=== PATIENT | female | born 1980 | race Caucasian/White ===

== ENCOUNTER 2022-03-05 11:00 | Outpatient (RCR) | payer MEDICAID, SELFPAY | END 2022-07-02 14:56 | disposition home or self-care (01) | PROVIDERS: PCP Family Medicine; Visit Provider Neurological Surgery | DX: M54.42 Lumbago with sciatica, left side (principal); R53.1 Weakness; R26.89 Other abnormalities of gait and mobility; M54.2 Cervicalgia; Z51.89 Encounter for other specified aftercare | CPT/HCPCS: 97110; 97140; 97161 ==

== ENCOUNTER 2022-03-11 09:56 | Outpatient (CLI) | payer MEDICAID, SELFPAY ==
--- NOTE | 2022-03-11 10:15 | CRLHL7_ITS ---
For Patients: As a result of the Century Cures Act, medical imaging exams and procedure reports are released immediately into your electronic medical record. You may view this report before your referring provider. If you have questions, please contact your health care provider. INDICATION : Neck pain. Left-sided radiculopathy. TECHNIQUE : Cervical spine MRI without contrast. The following sequences were obtained: Sagittal T1, T2 weighted and STIR sequences. Axial T2-weighted and gradient sequences. COMPARISON: COMPARISONCervical spine MRI from 05/28/2020. FINDINGS: Normal cervical lordotic curve. No recent compression fracture or marrow replacing process. Posterior fossa structures are normal. Cervical cord signal is normal. No extraspinal soft tissue abnormalities. Discs/Endplates: At C5-6 and C6-7, mild disc height loss and disc desiccation. The remaining discs exhibit normal height and hydration signal. Findings at individual levels as follows: Craniocervical junction: Alignment is maintained. C2-C3: No spinal canal or neural foraminal stenosis. C3-C4: No spinal canal or neural foraminal stenosis. C4-C5: Shallow disc osteophyte complex minimally flattens the ventral thecal sac. No spinal canal or neural foraminal stenosis. C5-C6: Disc bulge contacts the ventral cord and contributes to mild spinal canal stenosis. Left uncovertebral arthrosis with moderate left neural foraminal stenosis. Mild impingement of the exiting left C6 nerve root. No right neural foraminal stenosis. C6-C7: Disc bulge contacts the ventral cord and contributes to [id number] spinal canal stenosis. Left uncovertebral arthrosis contributes to moderate neural foraminal stenosis with mild impingement of the exiting left C7 nerve root. Right uncovertebral arthrosis contributes to mild right neural foraminal stenosis. C7-T1: No spinal canal or neural foraminal stenosis. Imaged upper thoracic levels: No spinal canal or neural foraminal stenosis. IMPRESSION: 1. At C5-6, moderate left neural foraminal stenosis with mild impingement of the exiting left C6 nerve root. Slightly progressed. 2. At C6-7, moderate left neural foraminal stenosis with mild impingement of the exiting left C7 nerve root. Mild to moderate spinal canal stenosis as well. Stable. 3. Cervical cord signal is normal. No intradural pathology. Dictated by Gonzalo Ribeiro MD @ 03/11/2022 2:37:31 PM (Electronically Signed)
== END 2022-03-11 09:57 | disposition home or self-care (01) ==
LOC: MRI 09:57
PROVIDERS: PCP Family Medicine; Visit Provider Physician Assistant Medical
DX: M54.2 Cervicalgia (principal); M54.12 Radiculopathy, cervical region; M48.02 Spinal stenosis, cervical region
CPT/HCPCS: 72141

== ENCOUNTER 2022-05-15 13:46 | Outpatient (CLI) | payer MEDICAID, SELFPAY | END 2022-05-15 13:47 | disposition home or self-care (01) | PROVIDERS: PCP Family Medicine; Visit Provider Family Medicine | DX: N39.0 Urinary tract infection, site not specified (principal); M54.9 Dorsalgia, unspecified | CPT/HCPCS: 87086 ==

== ENCOUNTER 2022-11-05 17:15 | Outpatient (REF) | payer MEDICAID, SELFPAY ==
[2022-11-05 18:16] LABS: Basophils Absolute Auto 0.05 K/uL (0.00-0.30); Basophils Percent Auto 0.7 % (0.0-3.0); Eosinophils Absolute Auto 0.18 K/uL (0.00-0.50); Eosinophils Percent Auto 2.7 % (0.0-7.0); Hematocrit 40.6 % (33.0-51.0); Hemoglobin* 12.9 gm/dL (12.0-16.0); Immature Granulocytes Abs Auto 0.01 K/uL (0.00-0.30); Immature Granulocytes Pct Auto 0.1 %; Lymphocytes Absolute Auto 2.96 K/uL (0.90-2.90); Lymphocytes Percent Auto 43.6 % (20-44); Mean Corpuscular HGB Conc 32 gm/dL (32-36); Mean Corpuscular Hemoglobin 29 pg (26-34); Mean Corpuscular Volume 92 fL (80-100); Monocytes Percent Auto 5.2 % (0.0-11.0); Neutrophils Absolute Auto 3.24 K/uL (1.7-7.0); Neutrophils Percent Auto 47.7 % (42.0-72.0); Platelet Count* 306 K/uL (140-440); Red Blood Count 4.43 m/uL (4.00-5.20); White Blood Count* 6.79 K/uL (4.50-11.00)
[2022-11-05 18:17] LABS: Chloride* 104 mmol/L (96-114); Sodium* 138 mmol/L (135-149)
[2022-11-05 18:18] LABS: Potassium* 4.4 mmol/L (3.6-5.1); Slide Review Reflex No
[2022-11-05 18:20] LABS: Creatinine* 0.6 mg/dL (0.5-1.5); Estimated Glomerular Filt Rate 115 ml/min
[2022-11-05 18:21] LABS: Blood Urea Nitrogen* 19 mg/dL (5-24); Calcium* 9.4 mg/dL (8.4-10.6); Carbon Dioxide* 27 mmol/L (20-32); Glucose* 88 mg/dL (60-115)
[2022-11-05 18:23] LABS: INR 0.84 (0.91-1.10); Partial Thromboplastin Time* 27 Seconds (23-33)
[2022-11-05 18:48] LABS: Hemoglobin A1C* 5.32 % (0-5.6)
== END 2022-11-05 17:16 | disposition home or self-care (01) ==
LOC: NPINS 17:15
PROVIDERS: PCP Family Medicine
DX: Z01.818 Encounter for other preprocedural examination (principal)
CPT/HCPCS: 80048; 80053; 83036; 84443; 85025; 85610; 85730; 87081

== ENCOUNTER 2023-08-06 10:08 | Outpatient (CLI) | payer OTHER, SELFPAY | END 2023-08-06 10:09 | disposition home or self-care (01) | PROVIDERS: PCP Family Medicine; Visit Provider Family Medicine | DX: E05.90 Thyrotoxicosis, unspecified without thyrotoxic crisis or storm (principal); I10 Essential (primary) hypertension; Z13.220 Encounter for screening for lipoid disorders | CPT/HCPCS: 80053; 80061; 84439; 84443 ==

== ENCOUNTER 2023-12-15 09:00 | Outpatient (RCR) | payer MEDICAID, OTHER, MEDICARE, SELFPAY | END 2024-02-15 10:27 | disposition home or self-care (01) | PROVIDERS: PCP Family Medicine; Visit Provider Physician Assistant | DX: M54.2 Cervicalgia (principal); M53.3 Sacrococcygeal disorders, not elsewhere classified; Z98.1 Arthrodesis status; M48.07 Spinal stenosis, lumbosacral region; M51.26 Other intervertebral disc displacement, lumbar region; M51.27 Other intervertebral disc displacement, lumbosacral region; Z51.89 Encounter for other specified aftercare | CPT/HCPCS: 97012; 97016; 97032; 97035; 97110; 97112; 97140; 97161; 97164 ==

== ENCOUNTER 2024-03-16 12:59 | Outpatient (CLI) | payer OTHER, MEDICARE, SELFPAY | END 2024-03-16 13:00 | disposition home or self-care (01) | LOC: NFLDREF 03-19 06:13 | PROVIDERS: PCP Family Medicine; Referring Provider Family Medicine; Visit Provider Family Medicine | DX: R39.9 Unspecified symptoms and signs involving the genitourinary system (principal); N39.0 Urinary tract infection, site not specified | CPT/HCPCS: 87086 ==

== ENCOUNTER 2024-06-30 11:13 | Outpatient (CLI) | payer OTHER, MEDICARE, SELFPAY | END 2024-06-30 11:14 | disposition home or self-care (01) | PROVIDERS: PCP Family Medicine; Visit Provider Family Medicine | DX: I10 Essential (primary) hypertension (principal); R79.89 Other specified abnormal findings of blood chemistry; E04.1 Nontoxic single thyroid nodule | CPT/HCPCS: 80048; 84443 ==

== ENCOUNTER 2024-07-03 10:15 | Outpatient (RCR) | payer OTHER, MEDICARE, SELFPAY | END 2024-09-04 14:43 | disposition home or self-care (01) | PROVIDERS: PCP Family Medicine; Visit Provider Neurological Surgery | DX: M46.1 Sacroiliitis, not elsewhere classified (principal); M48.02 Spinal stenosis, cervical region; M50.10 Cervical disc disorder with radiculopathy, unspecified cervical region; Z51.89 Encounter for other specified aftercare | CPT/HCPCS: 97110; 97140; 97163 ==

== ENCOUNTER 2024-07-05 07:17 | Day surgery (SDC) | payer OTHER, MEDICARE, SELFPAY ==
[2024-07-05] VITALS (9 sets, daily range): BP systolic 118–128; BP diastolic 77–91; PULSE 65–99; RESP 16; TEMP 36.1–36.8; O2SAT 92–100; BMI 31.1
[2024-07-05] MEDS: fentaNYL 100 MCG/2 ML inj IVP (07:11)
[2024-07-05] MEDS: MIDAZOLAM HCL 1 MG/ML inj IVP (07:11)
[2024-07-05] MEDS: LACTATED RINGERS 1000 ML 1,000 ML 100 ML IV (07:15)
--- NOTE | 2024-07-05 07:36 | W.PM.H&PU ---
History & Physical Update History & Physical Update H&P Reviewed and patient assessed: No changes noted
[2024-07-05] MEDS: SODIUM CHLORIDE 0.9 % (FLUSH) 10 ML SYRINGE IVF (07:58)
--- NOTE | 2024-07-05 08:45 | SUR.PREOP ---
TIME?OUT:?0833 PT/RN/MDA?VERIFICATION?OF?SURGICAL?SITE,?PROCEDURE,?AND?CONSENT OBTAINED?PRIOR?TO?INVASIVE?PROCEDURE.
--- NOTE | 2024-07-05 09:02 | P.ANES_ITS ---
Anesthesia Charges Start Date/Time Anesthesia Start Date: 07/05/24 Anesthesia Start Time: 09:05 Stop Date/Time Anesthesia Stop Date: 07/05/24 Anesthesia Stop Time: 10:29 Coding CPT Codes CPT Codes: ANESTH ELBOW AREA SURGERY - 14410 ([id number]) QK - DIALYSIS NURSE 2-4 CNCRNT ANES PROC, QX - SEISMOGRAPH OPERATOR SVC W/ MD MED DIRECTION, P3 - PATIENT W/SEVERE SYS DISEASE
--- NOTE | 2024-07-05 09:02 | W.ANESCHARGE ---
Anesthesia Charges Start Date/Time Anesthesia Start Date: 07/05/24 Anesthesia Start Time: 09:05 Stop Date/Time Anesthesia Stop Date: 07/05/24 Anesthesia Stop Time: 10:29 Coding CPT Codes CPT Codes: ANESTH ELBOW AREA SURGERY - 85925 ([id number]) QK - ELECTRIC CRANE OPERATOR 2-4 CNCRNT ANES PROC, QX - PRINTING AGENT SVC W/ MD MED DIRECTION, P3 - PATIENT W/SEVERE SYS DISEASE
[2024-07-05] MEDS: CEFAZOLIN 2 GM in 0.9 % SODIUM CHLORIDE Mini-bag 100 ML IVPB (09:16)
[2024-07-05] MEDS: BACITRACIN OINTMENT BULK TUBE 1 APPLIC TOPICAL (09:50)
--- NOTE | 2024-07-05 10:02 | P.ORPRC_ITS ---
Procedure Note Date of procedure: 07/05/24 Procedure: PREOPERATIVE DIAGNOSIS: 1. Right ulnar nerve neuropathy; cubital tunnel syndrome 2. Right carpal tunnel syndrome 3. Right long trigger finger-flexor tenosynovitis POSTOPERATIVE DIAGNOSIS: 1. Right ulnar nerve neuropathy; cubital tunnel syndrome with a stable nerve during flexion after release. 2. Right carpal tunnel syndrome 3. Right long trigger finger-flexor tenosynovitis PROCEDURE: 1. Right ulnar nerve decompression 2. Right open carpal tunnel release 3. Right long trigger finger release SURGEON: Jesus Santos MD BATT MACHINE OPERATOR: Yamile Contreras PA-C (Of note, use of an administrative assistant office manager was critical for this case to aid in patient positioning, tissue retraction, nerve protection, arm positioning, suture management, and closure as well as splint application.) ANESTHESIA: Regional block plus MAC EBL: 5 mL TOURNIQUET: 30 minutes at 250 torr IMPLANTS: None COMPLICATIONS: None evident INDICATIONS FOR PROCEDURE: The patient is a pleasant 44-year-old female. They have experienced right upper extremity numbness and tingling involving all digits, both median and ulnar nerve distribution, with some difficulty with fine motor skills. Given the patient's difficulty with use of this extremity as well as failure of nonoperative management, recommendation was made for surgery for nerve decompression. DESCRIPTION OF PROCEDURE: Following a thorough discussion of the risks, benefits and alternatives, consent was obtained and the right medial elbow and hand/palm were marked. The patient was brought to the operating room, placed supine on the operating table. Induction of anesthesia was undertaken. Appropriate time out was performed identifying proper patient, site, and procedure. 2 g IV Ancef was administered within 1 hr incision preoperatively. The operative upper extremity was prepped and draped in the appropriate sterile fashion using ChloraPrep prep. The limb was exsanguinated and the tourniquet inflated. We began with the right long trigger finger release. Sharp incision through skin in line with 1 of the palmar creases overlying the volar MCP joint. Blunt dissection with the tenotomy scissors allowed us to protect neurologic st ructures in the vicinity. The A1 sherri was identified and released from its proximal to distal extent. The tendons were then retrieved out of the wound with a Ragnell retractor. Complete release was confirmed. We then turned our attention to the open carpal tunnel release as follows: an incision was made in line with the radial border of the ring finger beginning 1 cm distal to the distal wrist crease and progressing for another 2.5cm distal. Caution was taken to stay proximal to Bunn's cardinal line. Sharp incision through the skin, subcutaneous tissue, and palmar fascia was performed. The thenar musculature was bluntly elevated off the transverse carpal ligament. The ligament was directly visualized, and divided sharply with a 15 blade. This was released from its most proximal to the most distal extent. Metzenbaum scissor was also utilized to release the fascia extension proximally. We confirmed complete release of the transverse carpal ligament. Finally, we completed the ulnar nerve decompression at the cubital tunnel as follows: a longitudinal incision was made along the medial elbow extending proximal and distal approximately 3-5 cm in either direction. Sharp incision through the skin and blunt dissection through the subcutaneous tissue allowed protection of crossing neurologic structures. Proximally, blunt dissection continued to the depth of the ulnar nerve itself. The nerve was released from its surrounding tissues beginning proximally and moving toward the distal extent. This included ligament of [place], medial intermuscular septum, cubital tunnel, FCU fascial sling, etc. The vena comitantes was maintained with the nerve and caution was taken particularly around the motor branches of the ulnar nerve. After releasing the nerve circumferentially, we then evaluated the need for transposition based on any subluxation / dislocation during elbow flexion. It was found to be stable and maintained its position within the groove with only minimal subluxation at deep flexion. It did not have significant subluxation nor dislocation. The nerve was found to be stable with deep elbow flexion and did not require anterior transposition. The tourniquet was deflated, hemostasis achieved, and a thorough irrigation performed. Closure was performed with 2-O Vicryl and 3-0 Monocryl for the subcutaneous and subcuticular closure, respectively. The carpal tunnel was then closed with 4-0 nylon in interrupted mattress fashion. Dressings were applied. Posterior long-arm splint was applied. PLAN: 1. Encourage elevation of the operative extremity. 2. Range of motion of the fingers and hand/wrist as tolerated. 3. Ibuprofen/acetaminophen and/or oxycodone as needed for pain control. 4. Follow up with PA visit or nurse visit in 2 days for splint removal and then at the 12-16 day point for wound check and suture removal.
--- NOTE | 2024-07-05 10:33 | P.ANES_ITS ---
Anesthesia Charges Start Date/Time Anesthesia Start Date: 07/05/24 Anesthesia Start Time: 09:05 Stop Date/Time Anesthesia Stop Date: 07/05/24 Anesthesia Stop Time: 10:29 Coding CPT Codes CPT Codes: ANESTH ELBOW AREA SURGERY - 34173 ([id number]) P3 - PATIENT W/SEVERE SYS DISEASE, QK - CLINICAL QUALITY MANAGER 2-4 CNCRNT ANES PROC, QX - PROJECT MANAGEMENT INSTRUCTOR SVC W/ MD MED DIRECTION
--- NOTE | 2024-07-05 10:33 | W.ANESCHARGE ---
Anesthesia Charges Start Date/Time Anesthesia Start Date: 07/05/24 Anesthesia Start Time: 09:05 Stop Date/Time Anesthesia Stop Date: 07/05/24 Anesthesia Stop Time: 10:29 Coding CPT Codes CPT Codes: ANESTH ELBOW AREA SURGERY - 26131 ([id number]) P3 - PATIENT W/SEVERE SYS DISEASE, QK - FLAT GRINDER OPERATOR 2-4 CNCRNT ANES PROC, QX - INSTRUMENT LENS INSPECTOR SVC W/ MD MED DIRECTION
--- NOTE | 2024-07-05 11:28 | W.PM.NB ---
Nerve Block Nerve Block Time Seen by Provider: 08:34 Date Seen: 07/05/24 Type of block requested by surgeon for post-operative analgesia: axillary Side: right Time out performed: Yes Verification of patient name: Yes Verification of date of : Yes Site marking: site marked Name of person performing procedure: Satnam Continuous monitoring Was continuous monitoring of O2 sat, B/P, playground monitor, recorded every 15 minutes?: Yes Procedure Checklist: sterile prep, needles and gloves Ultrasound guided. Images saved: Yes Medications given in 5ml increments after negative aspiration: Ropivicaine %: 0.5 mL: 10 Needle gauge: 22 and Lidocaine %: 2 mL: 15 Needle gauge: 22 Patient tolerated procedure well: Yes Additional comments: Needle noted adjacent to nerve Block Charges Block Charge (with Pro Fee): Brachial Plexus Use of Ultrasound Machine for Block: Yes- US Guidance/pain block
== END 2024-07-05 12:52 | disposition home or self-care (01) ==
PROVIDERS: PCP Family Medicine; Visit Provider Orthopaedic Surgery Sports Medicine
PROC: (CPT 64718; principal; 2024-07-05 09:00)
PROC: (CPT 64721; 2024-07-05 09:00)
DX: G56.21 Lesion of ulnar nerve, right upper limb (principal); G56.01 Carpal tunnel syndrome, right upper limb; M65.331 Trigger finger, right middle finger; M65.841 Other synovitis and tenosynovitis, right hand; G89.18 Other acute postprocedural pain
CPT/HCPCS: 64718; 64721; 26055; 01710; 64415; 76942; 81025; J0690; J1100; J2250; J2405; J2704; J2795; J3010; J3490; J7120

== ENCOUNTER 2024-07-06 13:18 | Outpatient (CLI) | payer OTHER, MEDICARE, SELFPAY ==
--- NOTE | 2024-07-06 13:00 | CRLHL7_ITS ---
For Patients: As a result of the Century Cures Act, medical imaging exams and procedure reports are released immediately into your electronic medical record. You may view this report before your referring provider. If you have questions, please contact your health care provider. INDICATION: H/O Thyroid Nodules COMPARISON: none TECHNIQUE: Russ scale and color Doppler images were acquired of the thyroid gland. FINDINGS: Solid nodule inferior pole left thyroid lobe measures 8 x 8 x 9 millimeters, TR 4. Additional solid nodule upper pole left thyroid lobe measures 5 x 5 x 8 millimeters, TR 4. Isthmus measures 3.2 millimeters. The right lobe measures 4.1 x 1.2 x 1.6 cm and the left lobe measures 4.7 x 1.4 x 1.8 cm in size. The color Doppler images demonstrate normal vascularity. There is no evidence of cervical lymphadenopathy or parathyroid mass. IMPRESSION: Sub cm left-sided thyroid nodules. No further follow-up indicated. Dictated by Harley Garsia MD @ 07/07/2024 1:02:06 PM (Electronically Signed)
== END 2024-07-06 13:19 | disposition home or self-care (01) ==
LOC: US 13:19
PROVIDERS: PCP Family Medicine; Visit Provider Family Medicine
DX: E04.1 Nontoxic single thyroid nodule (principal)
CPT/HCPCS: 76536

== ENCOUNTER 2024-08-11 10:19 | Outpatient (CLI) | payer MEDICARE, OTHER, SELFPAY | END 2024-08-11 10:20 | disposition home or self-care (01) | PROVIDERS: PCP Family Medicine; Visit Provider Family Medicine | DX: I10 Essential (primary) hypertension (principal); Z01.818 Encounter for other preprocedural examination | CPT/HCPCS: 85610; 85730; 86850; 86900; 86901; 87081 ==

== ENCOUNTER 2024-12-05 12:09 | Outpatient (CLI) | payer OTHER, MEDICARE, SELFPAY | END 2024-12-05 12:10 | disposition home or self-care (01) | LOC: NFLDREF 12-09 17:23 | PROVIDERS: PCP Family Medicine; Referring Provider Family Medicine; Visit Provider Family Medicine | DX: R35.0 Frequency of micturition (principal) | CPT/HCPCS: 87086 ==

== ENCOUNTER 2025-01-02 10:58 | Outpatient (CLI) | payer MEDICARE, OTHER, SELFPAY ==
[2025-01-02 11:53] VITALS: BP 182/96; PULSE 94; RESP 18
--- NOTE | 2025-01-02 14:09 | W.PM.STED ---
Stress Test Note Date Date Seen: 01/02/25 Date of test: 01/02/25 Providers Primary care provider: Dmitriy Manning Stress test physician: Leon Baig Stress Test Note Stress test ordered: Exercise Stress Test Indication for test: Chest pain Results discussion: Patient is a very nice lady who presents for the above test, after discussion the risks benefits and side effects including non diagnosis she would like to proceed, cardiac stress test medical history form is reviewed in detail. Pretest EKG shows a heart rate of 99, blood pressure 140/100. Standard Edwin protocol is employed over a time course of 10 minutes 12 seconds, she achieved a metabolic equivalent of 11.9 Mets with a maximum heart rate of 162, which is 108% of the maximum, maximum blood pressure was 212/98. There are no acute dysrhythmias, no acute ST wave changes suggestive of ischemia. She had some mild borderline ST depression of 1 to 1.5 mm both laterally and inferiorly. Conditioning was felt to be good. Subjectively she did develop a little bit of shortness of breath and some centralized chest discomfort. Impression: Negative electrographic portion of stress echo. Subjectively positive Follow up suggested: Patient was borderline, with some mild ST wave changes, these resolved in recovery. Her conditioning was felt to be good. If further workup is needed because of her symptomatic symptoms I would suggest an imaging modality coupled either with this stress test such as a stress echo, or a Lexiscan. Clinical correlation with the above will be needed. Patient left this testing facility in good condition
== END 2025-01-02 11:54 | disposition home or self-care (01) ==
LOC: STRESS 11:00
PROVIDERS: PCP Family Medicine; Visit Provider Family Medicine
DX: R07.9 Chest pain, unspecified (principal)
CPT/HCPCS: 93016; 93017

== ENCOUNTER 2025-01-03 12:57 | Outpatient (CLI) | payer MEDICARE, OTHER, SELFPAY ==
--- NOTE | 2025-01-03 13:00 | CRLHL7_ITS ---
For Patients: As a result of the Century Cures Act, medical imaging exams and procedure reports are released immediately into your electronic medical record. You may view this report before your referring provider. If you have questions, please contact your health care provider. INDICATION: BILATERAL SCREENING MAMMOGRAM, ASYMPTOMATIC 44 Y/O FEMALE COMPARISON: 06/02/2022, 08/23/2020, 11/02/2019 TECHNIQUE: Digital mammogram in CC and MLO projections including computer-aided detection (CAD) and tomosynthesis. BREAST COMPOSITION: The breasts are almost entirely fatty. FINDINGS: No suspicious findings. ASSESSMENT: BI-RADS 1 Negative RECOMMENDATION: Annual screening mammogram. A lay language report of this examination will be provided to the patient. Dictated by: Harley Garsia MD @ 01/08/2025 11:08:08 (Electronically Signed)
== END 2025-01-03 12:58 | disposition home or self-care (01) ==
LOC: MAMMO 12:58
PROVIDERS: PCP Family Medicine; Visit Provider Family Medicine
DX: Z12.31 Encounter for screening mammogram for malignant neoplasm of breast (principal)
CPT/HCPCS: 77063; 77067

== ENCOUNTER 2025-02-08 09:45 | Outpatient (RCR) | payer OTHER, MEDICARE, SELFPAY ==
--- NOTE | 2024-07-12 16:27 | OT.OPOE ---
OT Outpatient Ortho Eval OT Outpatient Ortho Eval* Start: 07/12/24 08:44 Freq: Status: Active Protocol: Document 07/12/24 08:45 RANJITH (Rec: 07/12/24 16:25 RIKKIKarina [id number]) E-signed By Deena Cole, OTR/L, CLT OT OP Ortho Eval Details Complexity Complexity Medium Insurance Information Other Insurance [facility] [employer], [facility] Medicare Insurance Information Comments Apt w/Kai Byrnes PA-C in 10- 12 days for clinical reassessment and suture removal. 07/18/24 at 10am in [place] Then, back to the surgeon in 6 weeks for clinical reassessment. Outpatient History/Precautions Current Condition/Medical Diagnosis Referring Provider Dr. Jesus Santos Medical Diagnoses Z98.890 Other Specified postprocedural states POSTOPERATIVE DIAGNOSIS: 1. Right ulnar nerve neuropathy; cubital tunnel syndrome with a stable nerve during flexion after release. 2. Right carpal tunnel syndrome 3. Right long trigger finger- flexor tenosynovitis Treatment Diagnosis Pain in R hand, M79.641 Pain in R elbow, M25.521 R hand Stiffness, long finger (dominant hand) M25.641 Date of Onset DOS: 07/05/24 Other Precautions Surgeon wrote orders for: Gentle motion of the elbow, wrist, hand and fingers Other Conditions History of carpal tunnel surgery of right wrist (Acute 07/05/24) Right open carpal tunnel release. Dr. Santos, 07/05/24 Z98.890 - Other specified postprocedural states (ICD-10) Status post trigger finger release (Acute 07/05/24) Right long trigger finger release. Dr. Santos, 07/05/24 Z98.890 - Other specified postprocedural states (ICD-10) History of decompression of ulnar nerve (Acute 07/05/24) Right ulnar nerve decompression. Dr. Santos, Z98.890 - Other specified postprocedural states (ICD-10) Abnormal TSH (Acute) R79.89 - Other specified abnormal findings of blood chemistry (ICD-10) Pain management contract agreement (Acute) Z02.89 - Encounter for other administrative examinations ( ICD-10) Preventative health care ( Acute) Z00.00 - Encounter for general adult medical examination without abnormal findings (ICD -10) Insomnia (Chronic) G47.00 - Insomnia, unspecified (ICD-10) Chronic back pain (Chronic) Has had L4-5 fusion. M54.9 - Dorsalgia, unspecified (ICD-10) G89.29 - Other chronic pain ( ICD-10) Atrophic vaginitis (Chronic) N95.2 - Postmenopausal atrophic vaginitis (ICD-10) Obesity (BMI 30.0-34.9) ( Chronic) E66.9 - Obesity, unspecified ( ICD-10) Depression (Chronic) F32.A - Depression, unspecified (ICD-10) Undifferentiated connective tissue disease (Chronic) M35.9 - Systemic involvement of connective tissue, unspecified (ICD-10) Thyroid nodule (Chronic) E04.1 - Nontoxic single thyroid nodule (ICD-10) Restless legs syndrome ( Chronic) G25.81 - Restless legs syndrome (ICD-10) Raynaud's disease (Chronic) I73.00 - Raynaud's syndrome without gangrene (ICD-10) Posttraumatic stress disorder (Chronic) F43.10 - Post-traumatic stress disorder, unspecified (ICD-10 ) Pelvic pain in female (Chronic ) Chronic parametritis. R10.2 - Pelvic and perineal pain (ICD-10) Keloid scar (Chronic) L91.0 - Hypertrophic scar (ICD -10) Hyperthyroidism (Chronic) E05.90 - Thyrotoxicosis, unspecified without thyrotoxic crisis or storm (ICD-10) Hypertension (Chronic) with hx proteinuria. I10 - Essential (primary) hypertension (ICD-10) Gastroesophageal reflux disease (Chronic) K21.9 - Gastro-esophageal reflux disease without esophagitis (ICD-10) Fibromyalgia (Chronic) M79.7 - Fibromyalgia (ICD-10) Extrapyramidal movement disorder (Chronic) G25.9 - Extrapyramidal and movement disorder, unspecified (ICD-10) Endometriosis (Chronic) N80.9 - Endometriosis, unspecified (ICD-10) Chronic pain (Chronic) Hx of going to pain clinic. G89.29 - Other chronic pain ( ICD-10) Attention deficit hyperactivity disorder (ADHD) (Chronic) F90.9 - Attention-deficit hyperactivity disorder, unspecified type (ICD-10) Anxiety (Chronic) and panic attacks. F41.9 - Anxiety disorder, unspecified (ICD-10) Medical/Functional History Medical History Reviewed Yes Prior Level of Function/Mobility Patient is a and mother to 3 high school age kids. She is Indep with self cares and IADLs Ortho Subjective Subjective Subjective 44 year old female patient had her post op apt with Dr. Santos on 07/07/24 following her right ulnar nerve decompression, open carpal tunnel release, and long trigger finger release (DOS 03/2025). Surgeon wrote orders for: Gentle motion of the elbow, wrist, hand and fingers . Patient is concerned with infection risk and requests the wounds be dressed due to having two dogs. She will see Kai Byrnes PA-C in 10-12 days for clinical reassessment and suture removal. Then, back to the surgeon in 6 weeks for clinical reassessment. 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 This is all in addition to her right upper extremity symptoms. Pain Assessment Pain Pain Yes Pain Comments R (dominant) hand 5/10 but can be worse at night (in the evening) R (dominant) elbow 4/10 but can be worse at night (in the evening) Range of Motion and Strength Elbow/Forearm Range of Motion and Strength Elbow/Forearm Range of Motion and R elbow, AROM 8-136 degrees Strength Wrist Range of Motion and Strength Wrist Range of Motion and Strength R wrist: Flexion: 50 degrees Extension: 55 degrees Radial deviation: 17 degrees Ulnar deviation: 35 degree Hand/Finger/Thumb Range of Motion and Strength Hand/Finger/Thumb Range of Motion and R hand, middle finger Strength MCP: 4-75 degrees PIP: 5-80 degrees DIP: 4-60 degrees OT Problems Problems Problems Decreased Strength,Decreased Range of Motion,Decreased Dexterity,Pain,Decreased Coordination,Sensory Sensitivity,Lifting,Gripping, Pinching Problems Comments Sometimes is waking up in the middle of the night with pain/ discomfort in the R hand, trying to elevate every night on a pillow Other Problems Writing,Opening Containers, Dressing,Computer,Fasteners, Sleeping Patient Potential Excellent Assessment Assessment Assessment 44 year old female patient had her post op apt with Dr. Santos on 07/07/24 following her right ulnar nerve decompression, open carpal tunnel release, and long trigger finger release (DOS 03/2025). Surgeon wrote orders for: Gentle motion of the elbow, wrist, hand and fingers . Patient is concerned with infection risk and requests the wounds be dressed due to having two dogs. She will see Kai Byrnes PA-C in 10-12 days for clinical reassessment and suture removal. Then, back to the surgeon in 6 weeks for clinical reassessment. 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 This is all in addition to her right upper extremity symptoms. Problem list includes: Pain to dominant R hand; Paresthesias: numbness and/or tingling, which can impair the patient?s fine motor control of affected digits; Declined process control manager and/or pinch strength to affected hand; Declined endurance of affective hand for repetitive activity; Declined functional use of affective hand for ADL tasks; Limited knowledge of ergonomic education, proper body mechanics and joint protection during ADL?s, and in the work environment. PLAN: Instruction of home program with verbal and written instructions; Ergonomics, body mechanics, adaptive equipment and adaptations as needed during ADL?s; Splint don/doff, wearing schedule and hygiene; Education on CTS (post surgery), Trigger Finger Release Surgery & Cubital Tunnel Release Surgery, basic anatomy and causes of compression; Pt will be referred back to referring physician/surgeon should symptoms persist or worsen. Patient is agreeable to the plan and motivated to make progress. Occupational Therapy Treatment Plan - OP Potential Rehabilitation Potential Excellent Set Goals Goals Set with Patient Yes Goals Goals 1. Patient will advance her R (dominant) hand middle finger AROM from (Eval 07/12/24) MCP: 4-75 degrees PIP: 5-80 degrees DIP: 4-60 degrees to WFL in order to resume ADL/IADL and leisure activities during the day. 2. Through active participation in skilled OT sessions, patient will maximize post-surgical wound healing to prevent infection, minimize functional/cosmetic sequelae of scarring. 3. In 8 weeks, pt will demonstrate: 1) Decreased pain to <2/10 80% of the time with sustained gripping & carrying tasks (ex: holding a coffee cup, carrying in groceries in the house, holding open a book ). 4. (LTG GOAL: in 12 weeks) Patient will have a R ( dominant) hand process control manager strength within 20 lbs of the non effected L hand. 5. (LTG GOAL: in 12 weeks) Patient will report resolution of paresthesias and/or pain to affected R hand. Target Date 12 weeks Treatment Plan Treatment Plan Evaluation,Edema Control,Joint Mobilization,Manual Therapy, Ultrasound,Wound Care/Scar Management,Therapeutic Exercise,Self Care/Home Management,Education Expected Frequency 1-2x Week Expected Duration 12 Comment Summary Therapist did issue patient a size Medium compression glove for the R hand as well as a Size Medium Finger Spring Extension Assist splint for the R hand middle finger to prevent flexion lag of the post surgical finger. Home Program Home Program Home Program Initiated Home Program Specifics Access Code: [email or web address] URL: [email or web address] Date: 07/12/2024 Prepared by: Deena Cole Exercises - Hand AROM Tendon Gliding Series - 1 x daily - 7 x weekly - 3 sets - 10 reps - Finger Spreading - 1 x daily - 7 x weekly - 3 sets - 10 reps - Thumb Opposition - 1 x daily - 7 x weekly - 3 sets - 10 reps - Seated Forearm Pronation and Supination AROM - 1 x daily - 7 x weekly - 3 sets - 10 reps - Seated Elbow Flexion and Extension AROM - 1 x daily - 7 x weekly - 3 sets - 10 reps - Wrist AROM Flexion Extension - 1 x daily - 7 x weekly - 3 sets - 10 reps - Wrist AROM Radial Ulnar Deviation - 1 x daily - 7 x weekly - 3 sets - 10 reps - Standing Chest Fly at Wall - 1 x daily - 7 x weekly - 3 sets - 10 reps Certification Certification Statement I Certify That: Therapy Services Provided, Therapy Plan Established, Therapy Plan Reviewed Certification Information Clinic ID # [id number] Initial Certification Date 07/12/24 Recertification Due Date 10/10/24 Provider Signature Required Yes Provider Signature Shows Agreement With POC & Medical Necessity Physician NPI Number Write NPI# Here Physician Comment/Change Comment or Changes Physician Signature & Date Requested Please Sign/Date Here
--- NOTE | 2024-09-25 14:26 | OT.OPODN ---
OT Outpatient Ortho Daily Note OT Outpatient Ortho Daily Note* Start: 07/12/24 08:44 Freq: Status: Active Protocol: Document 09/25/24 13:49 RANJITH (Rec: 09/25/24 14:26 RANJITH [id number]) E-signed By Deena Cole OTR/L, CLT Type of Note Type of Note Type of Note Daily Note,Recert/Progress Note Visit Number [id number] Comments 10th visit Progress Note completed on 09/25/24 (EARLY RECERT) Insurance Information Other Insurance [facility] [employer], [employer] Medicare Outpatient History/Precautions Current Condition/Medical Diagnosis Referring Provider Dr. Jesus Santos Medical Diagnoses Z98.890 Other Specified postprocedural states POSTOPERATIVE DIAGNOSIS: 1. Right ulnar nerve neuropathy; cubital tunnel syndrome with a stable nerve during flexion after release. 2. Right carpal tunnel syndrome 3. Right long trigger finger-flexor tenosynovitis Treatment Diagnosis Pain in R hand, M79.641 Pain in R elbow, M25.521 R hand Stiffness, long finger (dominant hand) M25.641 Date of Onset DOS: 07/05/24 Other Precautions NEW from Ortho f/u with PA on 07/18/24: Encouraged gentle elbow range of motion. No soaking the wound. Keep the wound clean and dry. EVAL: Surgeon wrote orders for: Gentle motion of the elbow, wrist, hand and fingers. Other Conditions History of carpal tunnel surgery of right wrist (Acute 07/05/24) Right open carpal tunnel release. Dr. Santos, 07/05/24 Z98.890 - Other specified postprocedural states (ICD-10 ) Status post trigger finger release (Acute 07/05/24) Right long trigger finger release. Dr. Santos, Z98.890 - Other specified postprocedural states (ICD-10 ) History of decompression of ulnar nerve (Acute 07/05/24 ) Right ulnar nerve decompression. Dr. Santos, 07/05/24 Z98.890 - Other specified postprocedural states (ICD-10 ) Abnormal TSH (Acute) R79.89 - Other specified abnormal findings of blood chemistry (ICD-10) Pain management contract agreement (Acute) Z02.89 - Encounter for other administrative examinations (ICD-10) Preventative health care (Acute) Z00.00 - Encounter for general adult medical examination without abnormal findings (ICD-10) Insomnia (Chronic) G47.00 - Insomnia, unspecified (ICD-10) Chronic back pain (Chronic) Has had L4-5 fusion. M54.9 - Dorsalgia, unspecified (ICD-10) G89.29 - Other chronic pain (ICD-10) Atrophic vaginitis (Chronic) N95.2 - Postmenopausal atrophic vaginitis (ICD-10) Obesity (BMI 30.0-34.9) (Chronic) E66.9 - Obesity, unspecified (ICD-10) Depression (Chronic) F32.A - Depression, unspecified (ICD-10) Undifferentiated connective tissue disease (Chronic) M35.9 - Systemic involvement of connective tissue, unspecified (ICD-10) Thyroid nodule (Chronic) E04.1 - Nontoxic single thyroid nodule (ICD-10) Restless legs syndrome (Chronic) G25.81 - Restless legs syndrome (ICD-10) Raynaud's disease (Chronic) I73.00 - Raynaud's syndrome without gangrene (ICD-10) Posttraumatic stress disorder (Chronic) F43.10 - Post-traumatic stress disorder, unspecified ( ICD-10) Pelvic pain in female (Chronic) Chronic parametritis. R10.2 - Pelvic and perineal pain (ICD-10) Keloid scar (Chronic) L91.0 - Hypertrophic scar (ICD-10) Hyperthyroidism (Chronic) E05.90 - Thyrotoxicosis, unspecified without thyrotoxic crisis or storm (ICD-10) Hypertension (Chronic) with hx proteinuria. I10 - Essential (primary) hypertension (ICD-10) Gastroesophageal reflux disease (Chronic) K21.9 - Gastro-esophageal reflux disease without esophagitis (ICD-10) Fibromyalgia (Chronic) M79.7 - Fibromyalgia (ICD-10) Extrapyramidal movement disorder (Chronic) G25.9 - Extrapyramidal and movement disorder, unspecified (ICD-10) Endometriosis (Chronic) N80.9 - Endometriosis, unspecified (ICD-10) Chronic pain (Chronic) Hx of going to pain clinic. G89.29 - Other chronic pain (ICD-10) Attention deficit hyperactivity disorder (ADHD) ( Chronic) F90.9 - Attention-deficit hyperactivity disorder, unspecified type (ICD-10) Anxiety (Chronic) and panic attacks. F41.9 - Anxiety disorder, unspecified (ICD-10) Medical/Functional History Medical History Yes Reviewed Prior Level of Patient is a and mother to 3 high school age kids. Function/Mobility She is Indep with self cares and IADLs Oriented Mental Status No Concerns Ortho Subjective Subjective Subjective 09/25/24: Today is patient's 20th treatment session and a PROGRESS NOTE. She is reporting no pain at her elbow, but some discomfort in the R dominant hand ( not at the CTS area but the R hand middle finger) 08/03. September 26 patient is seeing a hand specialist at [facility] in [place] to consult on her middle finger snapping/swelling. Pain Assessment Pain Pain Yes Pain Comments R (dominant) hand 08/03 (middle finger) R (dominant) elbow; No pain reported OT OP Daily Ortho Note/Assessment Therapeutic Exercise Therapeutic Exercise 34 Minutes (minutes) Therapeutic Exercise Provided mirrored demo for accurate technique and speed Comments of movement. Educated patient that all exercises are done lightly through a gentle, slow, pain free AROM. Patient verbalized her understanding of this information and had successful teach back when mirroring therapists? movement. Access Code: [email or web address] URL: [email or web address] Date: 07/12/2024 Prepared by: Deena Cole Exercises - Hand AROM Tendon Gliding Series - 1 x daily - 7 x weekly - 3 sets - 10 reps - Finger Spreading - 1 x daily - 7 x weekly - 3 sets - 10 reps - Thumb Opposition - 1 x daily - 7 x weekly - 3 sets - 10 reps - Seated Forearm Pronation and Supination AROM - 1 x daily - 7 x weekly - 3 sets - 10 reps - Seated Elbow Flexion and Extension AROM - 1 x daily - 7 x weekly - 3 sets - 10 reps - Wrist AROM Flexion Extension - 1 x daily - 7 x weekly - 3 sets - 10 reps - Wrist AROM Radial Ulnar Deviation - 1 x daily - 7 x weekly - 3 sets - 10 reps - Standing Chest Fly at Wall - 1 x daily - 7 x weekly - 3 sets - 10 reps -R hand middle finger lifts (extension) with palm on the table In the clinic, with patient seated, did over the door pulleys for 3 mins x2 sets. Red-medium soft (upgraded from Yellow-light resistance) [employer] R hand, flat for gentle pushes (finger and wrist extension). 3x15 R hand wrist extension with a 3lb weight (arm on wedge with forearm and elbow down) for 3x15 Red-medium soft resistance FlexBar for pronation/ supination/twist done with bilateral hands Manual Therapy Manual Therapy 11 Minutes (minutes) Manual Therapy R hand/Wrist and focus on the R hand middle finger Comments Circumferential soft tissue mobilization as a warmup prior to performing joint mobilization & tendon gliding . Gentle Traction ? Perpendicular to the treatment plane, used for pain-relieving techniques to promote relaxation & prepare tissues prior to performing glides . Next, therapist performed finger glides which are designed to stretch the joint capsule: increases translatory motion (dominant arthrokinematic component of finger joints). These were done in both open and closed chain. Open chain: mobilizing the concave surface on a fixed convex surface; Dorsal glide to improve digital extension; Volar glide to improve digital flexion. Followed this by Closed chain: mobilizing the convex surface on a fixed concave surface; Dorsal glide to improve digital flexion & lastly, Volar glide to improve digital extension. Total Occupational Therapy Time Occupational Therapy 45 Minutes Home Program Home Program Home Program Compliant Home Program Access Code: [email or web address] URL: [email or web address] Date: 07/12/2024 Prepared by: Deena Cole Exercises - Hand AROM Tendon Gliding Series - 1 x daily - 7 x weekly - 3 sets - 10 reps - Finger Spreading - 1 x daily - 7 x weekly - 3 sets - 10 reps - Thumb Opposition - 1 x daily - 7 x weekly - 3 sets - 10 reps - Seated Forearm Pronation and Supination AROM - 1 x daily - 7 x weekly - 3 sets - 10 reps - Seated Elbow Flexion and Extension AROM - 1 x daily - 7 x weekly - 3 sets - 10 reps - Wrist AROM Flexion Extension - 1 x daily - 7 x weekly - 3 sets - 10 reps - Wrist AROM Radial Ulnar Deviation - 1 x daily - 7 x weekly - 3 sets - 10 reps - Standing Chest Fly at Wall - 1 x daily - 7 x weekly - 3 sets - 10 reps Range of Motion and Strength Elbow/Forearm Range of Motion and Strength Elbow/Forearm Range 08/07/24: R elbow, AROM 4-140 degrees of Motion and 08/21/24: R elbow, AROM 3-150 degrees Strength 09/25/24: R elbow AROM 0-150 degrees Wrist Range of Motion and Strength Wrist Range of 09/25/24: R wrist: Flexion: 56 degrees, Extension: 64 Motion and Strength degrees (with some stiffness present pulling) 08/07/24: R wrist: Flexion: 50 degrees Extension: 55 degrees Radial deviation: 17 degrees Ulnar deviation: 35 degree 08/21/24: R wrist: Flexion: 52 degrees Extension: 57 degrees Radial deviation: 29 degrees Ulnar deviation: 35 degree Hand/Finger/Thumb Range of Motion and Strength Hand/Finger/Thumb 09/25/24: R hand, middle finger; MCP: 4-84 degrees PIP: Range of Motion and 5-95 degrees DIP: 0-75 degrees Strength 08/07/24: R hand, middle finger; MCP: 4-75 degrees PIP: 5-80 degrees DIP: 4-60 degrees 08/21/24: R hand, middle finger; MCP: 0-83 degrees PIP: 3-85 degrees DIP: 3-69 degrees Hand Pinch/Rug Dyer Strength Hand Pinch/Rug Dyer Strength Hand Pinch/Rug Dyer Left Hand,Right Hand Strength Left Hand Rug Dyer Strength 55 Position 1 in Elbow Flexion (lbs) Rug Dyer Strength 55 Position 2 in Elbow Extension (lbs) Lateral Pinch 6 Strength (lbs) Three Point Pinch ( 5 lbs) Tip Pinch Strength ( 5 lbs) Right Hand Rug Dyer Strength 25 Position 1 in Elbow Flexion (lbs) Rug Dyer Strength 25 Position 2 in Elbow Extension (lbs) Lateral Pinch 6 Strength (lbs) Three Point Pinch ( 5 lbs) Tip Pinch Strength ( 5 lbs) Comments Comments Measured again 09/25/24 (R UE same ground crewman aircraft support/pinches as when measured on 09/07/24) OT Objective Data Hand Hand Dominance Right Observations/Posture/Limb Appearance Objective R Elbow: Observations Wound appears healthy, healing, no erythema, surgical glue is all off. Skin/Wounds/Edema Comments R Hand: Long digit wound appears healthy, healing, patient does report some catching/locking. CTR wound appears grossly healthy. There is no erythema streaking, mild swelling. tea bag machine tender to palpation periwound. No obvious abscess or any drainage. Sensation Sensation Assessment R Hand: Summary Comments 2+ radial pulse, pink warm digits with brisk cap refill ; intact dermatomes and myotomes distally including the radial, ulnar, and median nerve distributions OT Problems Problems Problems Decreased Strength,Decreased Range of Motion,Decreased Dexterity,Pain,Decreased Coordination,Sensory Sensitivity,Lifting,Gripping,Pinching Problems Comments Sometimes is waking up in the middle of the night with pain/discomfort in the R hand, trying to elevate every night on a pillow Other Problems Writing,Opening Containers,Dressing,Computer,Fasteners, Sleeping Patient Potential Excellent Assessment Assessment Assessment 09/25/24: Patient's AROM, strength and muscle endurance continue to show improvement. Pain is lessening and scars are beginning to lay down flat. Able to advance our focus now on strengthening as patient's R (dominant ) hand ground crewman aircraft support strength is greatly below the norms for her gender and age. Measurements for ground crewman aircraft support/pinches were the same today as when measured on 09/11/24. AROM in the R elbow, wrist and middle finger are better than last month. Pain has decreased and scar sensitively is less. Occupational Therapy Treatment Plan - OP Potential Rehabilitation Excellent Potential Set Goals Goals Set with Yes Patient Goals Goals 1. Patient will advance her R (dominant) hand middle finger AROM from (Eval 07/12/24) MCP: 4-75 degrees PIP: 5-80 degrees DIP: 4-60 degrees to WFL in order to resume ADL/IADL and leisure activities during the day. -progressing, continue 2. Through active participation in skilled OT sessions, patient will maximize post-surgical wound healing to prevent infection, minimize functional/cosmetic sequelae of scarring. -progressing, continue 3. In 8 weeks, pt will demonstrate: 1) Decreased pain to <2/10 80% of the time with sustained gripping & carrying tasks (ex: holding a coffee cup, carrying in groceries in the house, holding open a book). - progressing, continue 4. (LTG GOAL: in 12 weeks) Patient will have a R ( dominant) hand ground crewman aircraft support strength within 20 lbs of the non effected L hand. -progressing, continue 5. (LTG GOAL: in 12 weeks) Patient will report resolution of paresthesias and/or pain to affected R hand. -progressing, continue Target Date 12 weeks Treatment Plan Treatment Plan Evaluation,Edema Control,Joint Mobilization,Manual Therapy,Ultrasound,Wound Care/Scar Management, Therapeutic Exercise,Self Care/Home Management, Education Expected Frequency 1-2x Week Expected Duration 12 Occupational Therapy Billing Units Treatment Minutes Timed Treatment 45 Minutes Total Treatment 45 Minutes Billing Units Manual Therapy 1 Therapeutic Exercise 2 Certification Statement Certification Statement I Certify That: Therapy Services Provided,Therapy Plan Established, Therapy Plan Reviewed Recertification Information Recertification Information Initial 07/12/24 Certification Date Recertification 09/25/24 Start Date Recertification Due 12/24/24 Date Reasons to Continue Patient is going to see a hand specialist at [facility] Skilled Therapy tomorrow (09/26/24) in regards to her R hand middle finger. R elbow is doing well with increased AROM and better strength. Rehabilitation Great Potential Click To Default ' Per treatment plan Per treatment plan' Continued Plan of Per treatment plan Care and Interventions Provider Signature Yes Required Provider Signature POC & Medical Necessity Shows Agreement With Physician NPI Number Write NPI# Here Physician Comment/ Comment or Changes Change Physician Signature Please Sign/Date Here & Date Requested
--- NOTE | 2024-12-14 12:17 | OT.OPODN ---
OT Outpatient Ortho Daily Note OT Outpatient Ortho Daily Note* Start: 07/12/24 08:44 Freq: Status: Active Protocol: Document 12/14/24 11:09 RANJITH (Rec: 12/14/24 12:16 RANJITH [id number]) E-signed By Deena Cole OTR/L, CLT Type of Note Type of Note Type of Note Daily Note,Recert/Progress Note Visit Number [id number] Comments Recert Note: 12/14/24-sent to Dr. Santos Insurance Information Other Insurance [facility] [employer], [employer] Medicare Outpatient History/Precautions Current Condition/Medical Diagnosis Referring Provider Dr. Jesus Santos Medical Diagnoses Z98.890 Other Specified postprocedural states POSTOPERATIVE DIAGNOSIS: 1. Right ulnar nerve neuropathy; cubital tunnel syndrome with a stable nerve during flexion after release. 2. Right carpal tunnel syndrome 3. Right long trigger finger-flexor tenosynovitis Treatment Diagnosis Pain in R hand, M79.641 Pain in R elbow, M25.521 R hand Stiffness, long finger (dominant hand) M25.641 Date of Onset DOS: 07/05/24 Other Conditions History of carpal tunnel surgery of right wrist (Acute 07/05/24) Right open carpal tunnel release. Dr. Santos, 07/05/24 Z98.890 - Other specified postprocedural states (ICD-10 ) Status post trigger finger release (Acute 07/05/24) Right long trigger finger release. Dr. Santos, Z98.890 - Other specified postprocedural states (ICD-10 ) History of decompression of ulnar nerve (Acute 07/05/24 ) Right ulnar nerve decompression. Dr. Santos, 07/05/24 Z98.890 - Other specified postprocedural states (ICD-10 ) Abnormal TSH (Acute) R79.89 - Other specified abnormal findings of blood chemistry (ICD-10) Pain management contract agreement (Acute) Z02.89 - Encounter for other administrative examinations (ICD-10) Preventative health care (Acute) Z00.00 - Encounter for general adult medical examination without abnormal findings (ICD-10) Insomnia (Chronic) G47.00 - Insomnia, unspecified (ICD-10) Chronic back pain (Chronic) Has had L4-5 fusion. M54.9 - Dorsalgia, unspecified (ICD-10) G89.29 - Other chronic pain (ICD-10) Atrophic vaginitis (Chronic) N95.2 - Postmenopausal atrophic vaginitis (ICD-10) Obesity (BMI 30.0-34.9) (Chronic) E66.9 - Obesity, unspecified (ICD-10) Depression (Chronic) F32.A - Depression, unspecified (ICD-10) Undifferentiated connective tissue disease (Chronic) M35.9 - Systemic involvement of connective tissue, unspecified (ICD-10) Thyroid nodule (Chronic) E04.1 - Nontoxic single thyroid nodule (ICD-10) Restless legs syndrome (Chronic) G25.81 - Restless legs syndrome (ICD-10) Raynaud's disease (Chronic) I73.00 - Raynaud's syndrome without gangrene (ICD-10) Posttraumatic stress disorder (Chronic) F43.10 - Post-traumatic stress disorder, unspecified ( ICD-10) Pelvic pain in female (Chronic) Chronic parametritis. R10.2 - Pelvic and perineal pain (ICD-10) Keloid scar (Chronic) L91.0 - Hypertrophic scar (ICD-10) Hyperthyroidism (Chronic) E05.90 - Thyrotoxicosis, unspecified without thyrotoxic crisis or storm (ICD-10) Hypertension (Chronic) with hx proteinuria. I10 - Essential (primary) hypertension (ICD-10) Gastroesophageal reflux disease (Chronic) K21.9 - Gastro-esophageal reflux disease without esophagitis (ICD-10) Fibromyalgia (Chronic) M79.7 - Fibromyalgia (ICD-10) Extrapyramidal movement disorder (Chronic) G25.9 - Extrapyramidal and movement disorder, unspecified (ICD-10) Endometriosis (Chronic) N80.9 - Endometriosis, unspecified (ICD-10) Chronic pain (Chronic) Hx of going to pain clinic. G89.29 - Other chronic pain (ICD-10) Attention deficit hyperactivity disorder (ADHD) ( Chronic) F90.9 - Attention-deficit hyperactivity disorder, unspecified type (ICD-10) Anxiety (Chronic) and panic attacks. F41.9 - Anxiety disorder, unspecified (ICD-10) Medical/Functional History Medical History Yes Reviewed Prior Level of Patient is a and mother to 3 high school age kids. Function/Mobility She is Indep with self cares and IADLs Oriented Mental Status No Concerns Ortho Subjective Subjective Subjective 12/14/24: Patient is 9 weeks out from her revision surgery (trigger finger of the R (dominant) hand middle finger (the 06 of October was the date of the revision surgery). 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 Pain Assessment Pain Pain Yes Pain Comments R (dominant) hand 2/10 (middle finger) R (dominant) elbow; No pain reported but some ache/ incision line is hypersensitive. OT OP Daily Ortho Note/Assessment Therapeutic Exercise Therapeutic Exercise 17 Minutes (minutes) Therapeutic Exercise Tendon Gliding Exercise. 1. Straight 2. Salute 3. Hook Comments 4. Straight Fist. Always return to straight after each exercise. Repeat 8 ? 10 times, 3 ? 4 times per day FDS Gliding. Hold fingers as shown. Bend the involved finger at the middle joint (PIP joint), hold for 5 seconds, and then straighten the finger. Repeat 8 ? 10 times, 3 ? 4 times per day Active Finger Extension Exercises. 1. Blocked PIP Extension. Holding involved finger with uninvolved hand , straighten finger fully, focusing on extension at middle joint ? hold for a few seconds. Follow this with blocked MCP, bending of the PIP of the R hand middle finger. Repeat 8 ? 10 times, 3 ? 4 times per day 2. Salute. Bend fingers at large joints as far as possible, keeping middle and distal joints straight, then return to starting position. Repeat 8 ? 10 times, 3 ? 4 times per day. 3. Finger Extension. With your hand and fingers resting on the table lift all fingers up, while keeping your hand flat. Repeat 8 ? 10 times, 3 ? 4 times per day. 4. Individual Finger Extension. With your hand and fingers resting on the table lift each finger individually, while keeping your hand flat. Repeat 8 ? 10 times, 3 ? 4 times per day Re-tested steelscope operator and pinch strengths on the R hand, significant improvement (see grid for numbers). Manual Therapy Manual Therapy 21 Minutes (minutes) Manual Therapy Scar desensitization to the R hand middle finger over Comments the healed incisions (closed). 1. Scar Massage 2. Texture Massage - rubbing the area with various textures. Starting with soft materials and work up to coarser textures. For example cotton wool, felt, toweling, rough cloth, velcro. 3. Immersion -not able to perform at the R elbow in the clinic but gave patient a few ideas of how she could do this at home. 4. Percussion/Tapping - using your hand or light object such as a pencil, lightly tap the affected area quickly for two minutes or until you notice feeling in the area changing or it starts to feel numb. 5. Vibration - Use an electric toothbrush to lightly apply vibration to the area. Start on an area that is not sensitive and gradually work towards the affected area. In clinic , therapist used a small vibrating tool meant for scars -desensitization [id number] to the varghese side of the R (dominant) hand middle finger Ultrasound Ultrasound Minutes ( 9 minutes) Ultrasound Location Ultrasound applied to right hand over the scar from & Joint Position Trigger Finger Release surgery (Wednesday the 06 of October was the date of the revision surgery). Target points- varghese fascia-up to the tendon cord). Modality used for reducing edema/increasing collagen tissue temp prior to stretching and manual therapy to allow for decreased joint stiffness and increased AROM in order to have functional use of the R (dominant hand) with intensity level/settings at: 3 MHz (superficial) for moderate heating. 100% duty factor at 1.7 w/cm Ultrasound Frequency 3 MHz Continuous & Mode Intensity (w/cm2) 1.7 Total Occupational Therapy Time Occupational Therapy 47 Minutes Home Program Home Program Home Program Compliant Home Program Access Code: [email or web address] URL: [email or web address] Date: 07/12/2024 Prepared by: Deena Cole Exercises - Hand AROM Tendon Gliding Series - 1 x daily - 7 x weekly - 3 sets - 10 reps - Finger Spreading - 1 x daily - 7 x weekly - 3 sets - 10 reps - Thumb Opposition - 1 x daily - 7 x weekly - 3 sets - 10 reps - Seated Forearm Pronation and Supination AROM - 1 x daily - 7 x weekly - 3 sets - 10 reps - Seated Elbow Flexion and Extension AROM - 1 x daily - 7 x weekly - 3 sets - 10 reps - Wrist AROM Flexion Extension - 1 x daily - 7 x weekly - 3 sets - 10 reps - Wrist AROM Radial Ulnar Deviation - 1 x daily - 7 x weekly - 3 sets - 10 reps - Standing Chest Fly at Wall - 1 x daily - 7 x weekly - 3 sets - 10 reps Range of Motion and Strength Elbow/Forearm Range of Motion and Strength Elbow/Forearm Range 08/07/24: R elbow, AROM 4-140 degrees of Motion and 08/21/24: R elbow, AROM 3-150 degrees Strength 09/25/24: R elbow AROM 0-150 degrees Wrist Range of Motion and Strength Wrist Range of 09/25/24: R wrist: Flexion: 56 degrees, Extension: 64 Motion and Strength degrees (with some stiffness present pulling) 08/07/24: R wrist: Flexion: 50 degrees Extension: 55 degrees Radial deviation: 17 degrees Ulnar deviation: 35 degree 08/21/24: R wrist: Flexion: 52 degrees Extension: 57 degrees Radial deviation: 29 degrees Ulnar deviation: 35 degree Hand/Finger/Thumb Range of Motion and Strength Hand/Finger/Thumb 09/25/24: R hand, middle finger; MCP: 4-84 degrees PIP: Range of Motion and 5-95 degrees DIP: 0-75 degrees Strength 08/07/24: R hand, middle finger; MCP: 4-75 degrees PIP: 5-80 degrees DIP: 4-60 degrees 08/21/24: R hand, middle finger; MCP: 0-83 degrees PIP: 3-85 degrees DIP: 3-69 degrees Hand Pinch/Room Service Food Server Strength Hand Pinch/Room Service Food Server Strength Hand Pinch/Room Service Food Server Left Hand,Right Hand Strength Left Hand Room Service Food Server Strength 55 Position 1 in Elbow Flexion (lbs) Room Service Food Server Strength 55 Position 2 in Elbow Extension (lbs) Lateral Pinch 6 Strength (lbs) Three Point Pinch ( 5 lbs) Tip Pinch Strength ( 5 lbs) Right Hand Room Service Food Server Strength 40 Position 1 in Elbow Flexion (lbs) Room Service Food Server Strength 35 Position 2 in Elbow Extension (lbs) Lateral Pinch 8 Strength (lbs) Three Point Pinch ( 8 lbs) Tip Pinch Strength ( 7 lbs) Comments Comments 12/11/24: Significant improvement in the R hand steelscope operator strength, was 25/25 lbs and now is 40 lbs in position 1 (elbow bent at 90 degrees and 35 lbs with arm straight out). 11/16/24: Washroom Operator have not increased in the R hand but her pinches have: previously were 6, 5 & 5 lbs and now are 8, 7, 7 lbs. Measured again 09/25/24 (R UE same steelscope operator/pinches as when measured on 09/07/24) OT Objective Data Hand Hand Dominance Right Observations/Posture/Limb Appearance Objective R Elbow: Observations Wound appears healthy, healing, no erythema, surgical glue is all off. Skin/Wounds/Edema Comments R Hand: Middle Finger Circumference around the R hand Middle Finger, PIP 7.7 cm's L hand middle finger (non effected side) 7.1 cm's. Around the bottom of the L middle finger (base) 7.3 cm' s; around the base of the R hand middle finger is 7.8 cm's 11/08/24: Swelling is slowly reducing: R hand middle finger: DIP 6.1 cm's (L hand 5.8 cm's) PIP is 6.8 cm's and L hand is 7.8 cm's Sensation Sensation Assessment R Hand: Summary Comments 2+ radial pulse, pink warm digits with brisk cap refill ; intact dermatomes and myotomes distally including the radial, ulnar, and median nerve distributions OT Problems Problems Problems Decreased Strength,Decreased Range of Motion,Decreased Dexterity,Pain,Decreased Coordination,Sensory Sensitivity,Lifting,Gripping,Pinching Problems Comments Sometimes is waking up in the middle of the night with pain/discomfort in the R hand, trying to elevate every night on a pillow Other Problems Writing,Opening Containers,Dressing,Computer,Fasteners, Sleeping Patient Potential Excellent Assessment Assessment Assessment 12/14/24: Significant improvement in the R hand steelscope operator strength, was 25/25 lbs and now is 40 lbs in position 1 (elbow bent at 90 degrees and 35 lbs with arm straight out). Patient wishes to continue with skilled therapy as she reports that it has been very beneficial to her, therapist sent re-cert note to provider, if signed we will schedule more sessions. Occupational Therapy Treatment Plan - OP Potential Rehabilitation Excellent Potential Set Goals Goals Set with Yes Patient Goals Goals 1. Patient will advance her R (dominant) hand middle finger AROM from (Eval 07/12/24) MCP: 4-75 degrees PIP: 5-80 degrees DIP: 4-60 degrees to WFL in order to resume ADL/IADL and leisure activities during the day. -progressing, continue 2. Through active participation in skilled OT sessions, patient will maximize post-surgical wound healing to prevent infection, minimize functional/cosmetic sequelae of scarring. -progressing, continue 3. In 8 weeks, pt will demonstrate: 1) Decreased pain to <2/10 80% of the time with sustained gripping & carrying tasks (ex: holding a coffee cup, carrying in groceries in the house, holding open a book). - progressing, continue 4. (LTG GOAL: in 12 weeks) Patient will have a R ( dominant) hand steelscope operator strength within 20 lbs of the non effected L hand. -progressing, continue 5. (LTG GOAL: in 12 weeks) Patient will report resolution of paresthesias and/or pain to affected R hand. -progressing, continue Target Date 12 weeks Treatment Plan Treatment Plan Evaluation,Edema Control,Joint Mobilization,Manual Therapy,Ultrasound,Wound Care/Scar Management, Therapeutic Exercise,Self Care/Home Management, Education Expected Frequency 1-2x Week Expected Duration 12 Occupational Therapy Billing Units Treatment Minutes Timed Treatment 47 Minutes Total Treatment 47 Minutes Billing Units Manual Therapy 1 Therapeutic Exercise 1 Ultrasound 1 Certification Statement Certification Statement I Certify That: Therapy Services Provided,Therapy Plan Established, Therapy Plan Reviewed Recertification Information Recertification Information Initial 07/12/24 Certification Date Recertification 12/14/24 Start Date Recertification Due 03/14/25 Date Reasons to Continue Patient is 9 weeks out from her revision surgery ( Skilled Therapy trigger finger of the R (dominant) hand middle finger ( the 06 of October was the date of the revision surgery). She has made excellent progress, with steelscope operator/pinch strengths increased since initial POC. There is scar tissue and swelling still and when this resolves/ improves-patient can than be discharged from therapy. Rehabilitation Great Potential Click To Default ' Per treatment plan Per treatment plan' Continued Plan of Per treatment plan Care and Interventions Provider Signature Yes Required Provider Signature POC & Medical Necessity Shows Agreement With Physician NPI Number Write NPI# Here Physician Comment/ Comment or Changes Change Physician Signature Please Sign/Date Here & Date Requested
== END 2025-02-08 12:09 | disposition home or self-care (01) ==
PROVIDERS: PCP Family Medicine; Visit Provider Orthopaedic Surgery Sports Medicine
DX: Z47.89 Encounter for other orthopedic aftercare (principal); G56.21 Lesion of ulnar nerve, right upper limb; M65.841 Other synovitis and tenosynovitis, right hand; Z98.1 Arthrodesis status; Z51.89 Encounter for other specified aftercare
CPT/HCPCS: 97035; 97110; 97140; 97161; 97166; X5282